=== PATIENT | male | born 1980 | race Caucasian/White ===

== ENCOUNTER 2019-05-08 09:51 | Outpatient (CLI) | payer BC ==
--- NOTE | 2019-05-08 10:34 | RAD ---
XR Lumbar Spine 2 Or 3 View HISTORY: Follow-up postsurgery COMPARISON: None. FINDINGS: The vertebral bodies are normal in height. At the lowermost disc level there are right unil ateral pedicle screw. Markers of the disc implants are within the confines of this disc level. This disc level is considered to be L5-S1 IMPRESSION: Postoperative changes of the lower lumbar spine.
== END 2019-05-08 09:52 | disposition home or self-care (01) ==
LOC: TBSIIMAG 09:51
PROVIDERS: ATTEND Neurological Surgery
DX: M54.16 Radiculopathy, lumbar region (principal); Z98.890 Other specified postprocedural states
CPT/HCPCS: 72100

== ENCOUNTER 2019-05-12 12:54 | Outpatient (CLI) | payer BC ==
--- NOTE | 2019-05-12 13:41 | CT ---
CT Lumbar Spine WO Con History: Radiculopathy. Prior surgery. Comparison: Radiograph lumbar spine 05/08/2019 Findings: Partial lumbarization of S1. Right unilateral posterior fixation with unilateral right disc ectomy changes L5-S1. The S1 screw does not have a medial course, and has a lateral course, proud of the S1 cortex 1 cm abutting the medial margin of right L5 nerve root. Aortic contour is nonaneurysmal. No retroperitoneal adenopathy. From L1-L4 no significant neural foraminal or spinal canal narrowing. Small L3/L4 and L4/L5 disc bulg e. At L5/S1 there is a large circumferential disc bulge. There is also postoperative seroma from facetectomy obscuring the right neural foramina. Mild fragmentation of the S1 spinous process. Impression: 1. The right S1 screw is not transpedicular and exits the S1 vertebral body, proud of the cortex 1 cm , and abuts the medial margin of the right L5 nerve root. This may be a source of patient's symptomatology. 2. Right L5/S1 facetectomy with large seroma completely obscuring the right neural foramina. 3. Large circumferential disc bulge at L5/S1 abutting both exiting nerve roots.
== END 2019-05-12 12:55 | disposition home or self-care (01) ==
LOC: BICCT 12:54
PROVIDERS: ATTEND Neurological Surgery
DX: M54.16 Radiculopathy, lumbar region (principal); Z98.890 Other specified postprocedural states
CPT/HCPCS: 72131

== ENCOUNTER 2019-06-05 08:16 | Outpatient (CLI) | payer BC ==
--- NOTE | 2019-06-05 10:18 | RAD ---
LUMBAR SPINE 2 VIEWS: HISTORY: Lumbar radiculopathy, followup post surgery. COMPARISON: 05/08/2019. FINDINGS: Midline surgical skin kaveh. Evidence for multilevel laminectomy with intradiskal prosthesis and p edicle screws on the right side stabilizing L5-S1. No significant malalignment. IMPRESSION: Postoperative changes at L5-S1. No significant malalignment. POS: OFF
== END 2019-06-05 08:17 | disposition home or self-care (01) ==
LOC: TBSIIMAG 08:16
PROVIDERS: ATTEND Neurological Surgery
DX: M54.16 Radiculopathy, lumbar region (principal); Z98.890 Other specified postprocedural states
CPT/HCPCS: 72100

== ENCOUNTER 2019-07-22 14:17 | Outpatient (CLI) | payer BC ==
--- NOTE | 2019-07-22 14:59 | RAD ---
THREE VIEWS OF THE LUMBAR SPINE: DATE: 07/22/2019. COMPARISON: 06/05/2019. HISTORY: Lumbar radiculopathy, prior lumbar spine surgery. FINDINGS: Five [id number] lumbar-type vertebral bodies are present. There is a right-sided posterior pedi bill screw at L5 and S1. There is an intervertebral disk device at L5-S1. Postoperative hardware is unchanged. No acute fracture or dislocation. No significant anterolisthesis or retrolisthesis. IMPRESSION: Stable postoperative change at the lumbosacral junction. POS: [facility]
== END 2019-07-22 14:18 | disposition home or self-care (01) ==
LOC: TBSIIMAG 14:17
PROVIDERS: ATTEND Neurological Surgery
DX: M54.16 Radiculopathy, lumbar region (principal); Z98.890 Other specified postprocedural states
CPT/HCPCS: 72100

== ENCOUNTER 2019-10-16 07:36 | Outpatient (CLI) | payer BC ==
--- NOTE | 2019-10-16 07:50 | RAD ---
Lumbar spine 2 views HISTORY: Low back pain. Drop on the right. Back surgeries. COMPARISON: 07/22/2019. FINDINGS: There are 5 lumbar type vertebrae. Right pedicle screws and vertical rods remain in place a t the L5-S1 level. Other pedicles are intact. Mild leftward convex curvature. Vertebral body heights and AP alignment are maintained. No. Hardware lucency. Metallic markers associ ated with interbody fusion material at the lumbosacral junction extending to the far anterior margin of the disc space. Osteophytosis throughout the facets. No aggressive osseous erosions. IMPRESSION : : Stable postoperative appearance of the lumbosacral junction.
== END 2019-10-16 07:37 | disposition home or self-care (01) ==
LOC: TBSIIMAG 07:36
PROVIDERS: ATTEND Neurological Surgery
DX: M54.16 Radiculopathy, lumbar region (principal); Z98.1 Arthrodesis status
CPT/HCPCS: 72100